=== PATIENT | male | born 2005 | race Caucasian/White ===

== ENCOUNTER 2025-04-14 09:53 | Inpatient (IN) | payer OTHER ==
[~2025-04-14] VITALS: Ht 185.4 cm; Wt 69.0 kg
[2025-04-14 10:55] LABS: PLATELET COUNT (AUTO) 241 K/uL (150-450); RED BLOOD CELL COUNT(AUTO) 5.05 MIL/uL (4.50-5.90); RED CELL DISTRIBUTION WIDTH 14.3 % (11.5-14.5); WHITE BLOOD COUNT (AUTO) 6.2 K/uL (4.5-11.0)
[2025-04-14 11:00] LABS: CALCIUM, TOTAL 9.4 mg/dL (8.8-10.5); CREATININE 0.94 mg/dL (0.60-1.30); GLOMERULAR FILTR. RATE CALC > 60 mL/min (>60); GLUCOSE,RANDOM 109 mg/dL (70-110); SODIUM SERUM 140 mmol/L (136-145); UREA NITROGEN, BLOOD 15 mg/dL (7-18)
[2025-04-14] MEDS ORDERED: ONDANSETRON HCL 4 MG/2 ML VIAL IVP PRN (12:45)
[2025-04-14] MEDS ORDERED: MAGNESIUM HYDROXIDE SUSPENSION 30 ML UDCUP PO PRN (12:45)
[2025-04-14] MEDS ORDERED: ZOLPIDEM TARTRATE 5 MG TABLET PO PRN (12:45)
[2025-04-14] MEDS: FAMOTIDINE 20 MG TABLET PO SCH (20:14)
[2025-04-14] MEDS: ACETAMINOPHEN 325 MG TABLET PO PRN (20:14)
[2025-04-14 20:18] VITALS: BP 117/61; PULSE 64; RESP 18; TEMP 98.4; O2SAT 100
[2025-04-15 06:28] VITALS: BP 109/63; PULSE 66; RESP 18; TEMP 97.6; O2SAT 100
[2025-04-15 08:00] VITALS: BP 120/71; PULSE 72; RESP 20; TEMP 97.3; O2SAT 100
[2025-04-15 09:10] LABS: APPEARANCE,URINE CLEAR (CLEAR); GLUCOSE, URINE (UA) NEGATIVE (NEGATIVE); LEUKOCYTE ESTERASE ,URINE NEGATIVE (NEGATIVE); NITRATE,URINE NEGATIVE (NEGATIVE); OCCULT BLOOD,URINE NEGATIVE (NEGATIVE); SPECIFIC GRAVITIY, URINE 1.019 (1.003-1.030)
[2025-04-15] MEDS: POLYETHYLENE GLYCOL 3350 17 GM PACKET PO SCH (15:16)
== END 2025-04-15 17:59 | DRG 392 ==
LOC: EMS 09:53 → EDH 12:55 → 6S 19:19
PROVIDERS: ADMIT Internal Medicine; ATTEND Internal Medicine
DX: K59.00 Constipation, unspecified (principal); F17.200 Nicotine dependence, unspecified, uncomplicated; Z71.6 Tobacco abuse counseling
CPT/HCPCS: 74176; 76870; 80048; 81003; 83690; 85025; 99285